=== PATIENT | female | born 1940 | race African-American/Black ===

== ENCOUNTER 2017-05-27 22:54 | Inpatient (IN) | payer BC ==
[~2017-05-27] VITALS: Ht 157.5 cm; Wt 63.5 kg
[~2017-05-27 22:54] MED LIST: ASPI-1159 PO; ATOR40TA70 PO; FAMO20TA8 PO; FURO40TA5 PO; GABA-531 PO; INSU3INS6 SUBCUT; KDUR10 PO; METF500T4 PO; METO-539 PO
[2017-05-28 00:16] LABS: BASOPHILS % 0.4 % (0.0-2.0); EOSINOPHILS % 2.7 % (0.0-5.0); MEAN CORPUSCULAR HEMOGLOBIN 28.2 pg (28.0-32.0); MEAN CORPUSCULAR VOLUME 87.2 fL (81.0-99.0); MEAN PLATELET VOLUME 7.7 fl (7.4-10.4); MONOCYTES % 8.5 % (2.0-8.0); NEUTROPHILS % 72.4 % (40.0-76.0); PLATELET 341 x1000/uL (130-400); RED BLOOD CELL COUNT 2.33 mill/uL (4.2-5.4); RED CELL DISTRIBUTION WIDTH 15.5 % (11.6-14.6)
[2017-05-28 00:20] LABS: CHLORIDE 114 mEq/L (98-107)
[2017-05-28 00:28] LABS: CARBON DIOXIDE 25 mEq/L (21-32)
[2017-05-28 00:29] LABS: HEMATOCRIT. 20.3 % (36.0-48.0); HEMOGLOBIN. 6.6 g/dL (12.0-16.0)
[2017-05-28] MEDS ORDERED: ONDANSETRON HCL 4MG/2ML VIAL IV PRN (01:15)
[2017-05-28] MEDS ORDERED: DIPHENHYDRAMINE 50MG/ML VIAL IV PRN (01:15)
[2017-05-28 01:40] LABS: MEAN CORPUSCULAR VOLUME 87.3 fL (81.0-99.0); PLATELET 330 x1000/uL (130-400); RED BLOOD CELL COUNT 2.24 mill/uL (4.2-5.4); RED CELL DISTRIBUTION WIDTH 15.6 % (11.6-14.6)
[2017-05-28 01:44] LABS: HEMOGLOBIN 6.3 g/dL (12.0-16.0)
[2017-05-28 01:45] LABS: HEMATOCRIT 19.5 % (36.0-48.0)
[2017-05-28] MEDS: DEXT 5%/0.45% NACL 1000ML 1,000 ML IV SCH (08:08)
[2017-05-28] MEDS: ACETAMINOPHEN 325MG TABLET PO PRN (08:41)
[2017-05-28] MEDS: CLONIDINE 0.1MG TABLET PO PRN ×2 (08:41→19:44)
[2017-05-28 12:16] LABS: HEMATOCRIT 25.4 % (36.0-48.0); HEMOGLOBIN 8.4 g/dL (12.0-16.0); MEAN CORPUSCULAR HEMOGLOBIN 28.7 pg (28.0-32.0); MEAN CORPUSCULAR VOLUME 87.2 fL (81.0-99.0); PLATELET 390 x1000/uL (130-400); RED BLOOD CELL COUNT 2.91 mill/uL (4.2-5.4)
[2017-05-28 13:35] LABS: TOTAL IRON BINDING CAPACITY 220 ug/dL (250-450)
[2017-05-28 14:10] LABS: FOLIC ACID (FOLATE) SERUM 17.7 ng/mL (>5.38)
[2017-05-28] MEDS: DOCUSATE SODIUM 100MG CAPSULE PO SCH (16:42)
[2017-05-28] MEDS: PANTOPRAZOLE SODIUM 40 MG/VIAL IV SCH (17:02)
[2017-05-28 18:31] LABS: HEMATOCRIT 26.4 % (36.0-48.0); HEMOGLOBIN 8.7 g/dL (12.0-16.0); MEAN CORPUSCULAR HEMOGLOBIN 29.6 pg (28.0-32.0); MEAN CORPUSCULAR VOLUME 89.6 fL (81.0-99.0); PLATELET 396 x1000/uL (130-400); RED BLOOD CELL COUNT 2.94 mill/uL (4.2-5.4); RED CELL DISTRIBUTION WIDTH 15.3 % (11.6-14.6)
[2017-05-28 20:00] VITALS: BP 176/71
[2017-05-28 22:00] VITALS: BP 176/71
[2017-05-29] VITALS (8 sets, daily range): BP systolic 117–207; BP diastolic 63–113
[2017-05-29] MEDS ORDERED: DEXTROSE 50% WATER 50ML SYRINGE IV PRN ×3 (00:30)
[2017-05-29 00:48] LABS: HEMATOCRIT 23.9 % (36.0-48.0); HEMOGLOBIN 7.8 g/dL (12.0-16.0); MEAN CORPUSCULAR HEMOGLOBIN 28.8 pg (28.0-32.0); MEAN CORPUSCULAR VOLUME 87.7 fL (81.0-99.0); PLATELET 375 x1000/uL (130-400); RED BLOOD CELL COUNT 2.72 mill/uL (4.2-5.4); RED CELL DISTRIBUTION WIDTH 15.2 % (11.6-14.6)
[2017-05-29] MEDS: CLONIDINE 0.1MG TABLET PO PRN ×2 (04:24→09:07)
[2017-05-29 06:39] LABS: HEMATOCRIT 24.6 % (36.0-48.0); HEMOGLOBIN 8.1 g/dL (12.0-16.0); MEAN CORPUSCULAR HEMOGLOBIN 28.8 pg (28.0-32.0); MEAN CORPUSCULAR VOLUME 86.9 fL (81.0-99.0); PLATELET 405 x1000/uL (130-400); RED BLOOD CELL COUNT 2.83 mill/uL (4.2-5.4); RED CELL DISTRIBUTION WIDTH 15.4 % (11.6-14.6)
[2017-05-29 06:42] LABS: PROTHROMBIN TIME 10.9 sec (9.4-11.6)
[2017-05-29] MEDS: BLOOD SUGAR DIAGNOSTIC STRIP TEST SCH ×3 (06:57→21:41)
[2017-05-29] MEDS ORDERED: BLOOD SUGAR DIAGNOSTIC STRIP TEST SCH (07:20)
[2017-05-29] MEDS: DOCUSATE SODIUM 100MG CAPSULE PO SCH ×2 (08:12→17:46)
[2017-05-29] MEDS: PANTOPRAZOLE SODIUM 40 MG/VIAL IV SCH (08:12)
[2017-05-29] MEDS ORDERED: FUROSEMIDE 40MG/4ML VIAL IVP SCH (12:15)
[2017-05-29] MEDS: DEXT 5%/0.45% NACL 1000ML 1,000 ML IV SCH ×2 (14:46→20:06)
[2017-05-29] MEDS: IPRATROPIUM/ALBUTEROL 0.5-3(2.5)MG/3ML NEB HHN PRN ×2 (15:45→20:13)
[2017-05-29] MEDS: CLONIDINE 0.2MG TABLET PO PRN (15:50)
[2017-05-29] MEDS ORDERED: SORBITOL 70% SOLN 30ML PO SCH (16:00)
[2017-05-29] MEDS: METOPROLOL TARTRATE 50MG TABLET PO SCH (16:10)
[2017-05-29] MEDS: ACETAMINOPHEN 325MG TABLET PO PRN (19:57)
[2017-05-29] MEDS ORDERED: SORBITOL 70% SOLN 30ML PO NR (20:00)
[2017-05-29] MEDS: HYDRALAZINE 20MG/ML VIAL IV PRN (20:07)
[2017-05-29] MEDS: INSULIN LISPRO 100 UNITS/ML SUBCUT SCH (22:03)
[2017-05-30] VITALS (12 sets, daily range): BP systolic 134–187; BP diastolic 71–95
[2017-05-30] MEDS: CLONIDINE 0.2MG TABLET PO PRN ×2 (00:06→15:09)
[2017-05-30] MEDS: HYDRALAZINE 20MG/ML VIAL IV PRN ×3 (05:13→18:20)
[2017-05-30] MEDS ORDERED: NA PHOS,M-B/NA PHOS,DI-BA ENEMA 118ML PR ONE (06:00)
[2017-05-30] MEDS: BLOOD SUGAR DIAGNOSTIC STRIP TEST SCH ×4 (06:17→21:25)
[2017-05-30] MEDS: INSULIN LISPRO 100 UNITS/ML SUBCUT SCH ×4 (06:28→21:25)
[2017-05-30 06:59] LABS: INR 1.1; PARTIAL THROMBOPLASTIN TIME 26.8 sec (23.4-31.0); PROTHROMBIN TIME 11.7 sec (9.4-11.6)
[2017-05-30 07:03] LABS: BASOPHILS % 0.4 % (0.0-2.0); EOSINOPHILS % 0.7 % (0.0-5.0); HEMATOCRIT. 24.2 % (36.0-48.0); LYMPHOCYTES % 22.9 % (20.0-50.0); MEAN CORPUSCULAR VOLUME 87.5 fL (81.0-99.0); MONOCYTES % 6.6 % (2.0-8.0); NEUTROPHILS % 69.4 % (40.0-76.0); PLATELET 387 x1000/uL (130-400); RED BLOOD CELL COUNT 2.77 mill/uL (4.2-5.4); RED CELL DISTRIBUTION WIDTH 15.2 % (11.6-14.6)
[2017-05-30 08:15] LABS: CARBON DIOXIDE 22 mEq/L (21-32); CHLORIDE 121 mEq/L (98-107)
[2017-05-30] MEDS ORDERED: SODIUM CHLORIDE 0.9% 10ML VIAL ONE (08:45)
[2017-05-30] MEDS ORDERED: SIMETHICONE 40 MG/0.6 ML 30ML ONE ×2 (08:45→10:29)
[2017-05-30] MEDS: PANTOPRAZOLE SODIUM 40 MG/VIAL IV SCH (08:47)
[2017-05-30] MEDS: METOPROLOL TARTRATE 50MG TABLET PO SCH ×2 (09:00→21:25)
[2017-05-30] MEDS: DOCUSATE SODIUM 100MG CAPSULE PO SCH ×2 (09:00→16:44)
[2017-05-30] MEDS ORDERED: MIDAZOLAM HCL 5 MG/5 ML VIAL ONE (10:30)
[2017-05-30] MEDS ORDERED: FENTANYL CITRATE/PF 50MCG/ML 2ML VIAL ONE (10:30)
[2017-05-30] MEDS ORDERED: MIDAZOLAM HCL 5 MG/5 ML VIAL IV PRN (10:32)
[2017-05-30] MEDS ORDERED: FENTANYL CITRATE/PF 50MCG/ML 2ML VIAL IV PRN (10:32)
[2017-05-30] MEDS ORDERED: POTASSIUM CHLORIDE INJ 40 MEQ in DEXT 5% WATER 500 ML IV NR (11:00)
[2017-05-30] MEDS: SODIUM CHLORIDE 0.45% 1,000 ML IV SCH (15:24)
[2017-05-31] VITALS (14 sets, daily range): BP systolic 131–196; BP diastolic 62–99
[2017-05-31] MEDS: HYDRALAZINE 20MG/ML VIAL IV PRN ×3 (04:08→18:24)
[2017-05-31] MEDS: BLOOD SUGAR DIAGNOSTIC STRIP TEST SCH ×4 (06:10→20:28)
[2017-05-31] MEDS: CLONIDINE 0.2MG TABLET PO PRN ×2 (06:15→13:01)
[2017-05-31 06:28] LABS: BASOPHILS % 0.1 % (0.0-2.0); EOSINOPHILS % 2.7 % (0.0-5.0); HEMATOCRIT. 28.2 % (36.0-48.0); HEMOGLOBIN. 9.2 g/dL (12.0-16.0); LYMPHOCYTES % 14.2 % (20.0-50.0); MEAN CORPUSCULAR HEMOGLOBIN 28.3 pg (28.0-32.0); MEAN CORPUSCULAR VOLUME 86.5 fL (81.0-99.0); MEAN PLATELET VOLUME 7.9 fl (7.4-10.4); MONOCYTES % 3.7 % (2.0-8.0); NEUTROPHILS % 79.3 % (40.0-76.0); PLATELET 455 x1000/uL (130-400); RED BLOOD CELL COUNT 3.25 mill/uL (4.2-5.4); RED CELL DISTRIBUTION WIDTH 15.3 % (11.6-14.6)
[2017-05-31] MEDS: INSULIN LISPRO 100 UNITS/ML SUBCUT SCH ×4 (08:24→20:38)
[2017-05-31] MEDS: DOCUSATE SODIUM 100MG CAPSULE PO SCH ×2 (08:24→16:32)
[2017-05-31] MEDS: METOPROLOL TARTRATE 50MG TABLET PO SCH ×2 (08:29→20:26)
[2017-05-31] MEDS: PANTOPRAZOLE SODIUM 40 MG/VIAL IV SCH (09:23)
[2017-05-31] MEDS: SODIUM CHLORIDE 0.45% 1,000 ML IV SCH (09:29)
[2017-05-31] MEDS ORDERED: POTASSIUM CHLORIDE 20MEQ TABLET SR PO NR (11:15)
[2017-05-31] MEDS: CLONIDINE 0.1MG TABLET PO SCH ×2 (14:36→22:31)
[2017-05-31] MEDS: GUAIFENESIN-DM 200MG-20MG/10ML UDC PO PRN (18:36)
[2017-06-01] VITALS (22 sets, daily range): BP systolic 143–217; BP diastolic 70–138
[2017-06-01] MEDS: BLOOD SUGAR DIAGNOSTIC STRIP TEST SCH ×4 (05:31→21:00)
[2017-06-01] MEDS: CLONIDINE 0.1MG TABLET PO SCH (05:31)
[2017-06-01] MEDS: SODIUM CHLORIDE 0.45% 1,000 ML IV SCH (05:31)
[2017-06-01] MEDS: HYDRALAZINE 20MG/ML VIAL IV PRN ×2 (07:06→18:19)
[2017-06-01 07:09] LABS: BASOPHILS % 0.2 % (0.0-2.0); EOSINOPHILS % 2.2 % (0.0-5.0); HEMATOCRIT. 27.6 % (36.0-48.0); HEMOGLOBIN. 9.4 g/dL (12.0-16.0); LYMPHOCYTES % 14.8 % (20.0-50.0); MEAN CORPUSCULAR HEMOGLOBIN 29.4 pg (28.0-32.0); MEAN CORPUSCULAR VOLUME 86.5 fL (81.0-99.0); MONOCYTES % 4.4 % (2.0-8.0); NEUTROPHILS % 78.4 % (40.0-76.0); PLATELET 391 x1000/uL (130-400); RED BLOOD CELL COUNT 3.19 mill/uL (4.2-5.4); RED CELL DISTRIBUTION WIDTH 15.7 % (11.6-14.6)
[2017-06-01] MEDS: CLONIDINE 0.2MG TABLET PO PRN (09:25)
[2017-06-01] MEDS: DOCUSATE SODIUM 100MG CAPSULE PO SCH ×2 (09:25→18:19)
[2017-06-01] MEDS: METOPROLOL TARTRATE 50MG TABLET PO SCH ×2 (09:26→21:26)
[2017-06-01] MEDS: INSULIN LISPRO 100 UNITS/ML SUBCUT SCH ×4 (09:27→21:00)
[2017-06-01] MEDS: PANTOPRAZOLE SODIUM 40 MG/VIAL IV SCH (09:27)
[2017-06-01] MEDS ORDERED: IPRATROPIUM/ALBUTEROL 0.5-3(2.5)MG/3ML NEB HHN NR (11:45)
[2017-06-01] MEDS: GUAIFENESIN-DM 200MG-20MG/10ML UDC PO PRN (14:23)
[2017-06-01] MEDS: CLONIDINE 0.2MG TABLET PO SCH ×2 (14:25→21:28)
[2017-06-01] MEDS ORDERED: HYDRALAZINE 20MG/ML VIAL IV NR (18:45)
[2017-06-01] MEDS ORDERED: FUROSEMIDE 40MG/4ML VIAL IVP NR (19:15)
[2017-06-02] MEDS ORDERED: FAMOTIDINE 20MG/2ML VIAL IV SCH (09:00)
== END 2017-06-01 23:57 | DRG 393 ==
LOC: ER 23:07 → 6EST 05-28 02:05 → ENRESERV 05-28 18:42 → 3WST 05-29 16:57
PROVIDERS: ADMIT Internal Medicine; ATTEND Internal Medicine
PROC: 30233N1 Transfusion of Nonautologous Red Blood Cells into Peripheral Vein, Percutaneous Approach (ICD-10-PCS; 2017-05-28)
PROC: 0DBP8ZX Excision of Rectum, Via Natural or Artificial Opening Endoscopic, Diagnostic (ICD-10-PCS; 2017-05-30)
PROC: 0DB68ZX Excision of Stomach, Via Natural or Artificial Opening Endoscopic, Diagnostic (ICD-10-PCS; principal; 2017-05-30 11:00)
DX: K62.6 Ulcer of anus and rectum (principal); E43 Unspecified severe protein-calorie malnutrition; E87.0 Hyperosmolality and hypernatremia; D64.9 Anemia, unspecified; E11.22 Type 2 diabetes mellitus with diabetic chronic kidney disease; E11.40 Type 2 diabetes mellitus with diabetic neuropathy, unspecified; I12.9 Hypertensive chronic kidney disease with stage 1 through stage 4 chronic kidney disease, or unspecified chronic kidney disease; K64.8 Other hemorrhoids; K44.9 Diaphragmatic hernia without obstruction or gangrene; E61.1 Iron deficiency; N18.9 Chronic kidney disease, unspecified; F32.9 Major depressive disorder, single episode, unspecified; E03.9 Hypothyroidism, unspecified; E78.5 Hyperlipidemia, unspecified; I25.10 Atherosclerotic heart disease of native coronary artery without angina pectoris; K29.60 Other gastritis without bleeding; K59.00 Constipation, unspecified; Z93.1 Gastrostomy status; Q71.32 Congenital absence of left hand and finger; Z95.5 Presence of coronary angioplasty implant and graft; I25.2 Old myocardial infarction; Z88.5 Allergy status to narcotic agent; Z79.84 Long term (current) use of oral hypoglycemic drugs; Z79.899 Other long term (current) drug therapy; Z86.73 Personal history of transient ischemic attack (TIA), and cerebral infarction without residual deficits; Z87.891 Personal history of nicotine dependence; Z82.49 Family history of ischemic heart disease and other diseases of the circulatory system; Z83.3 Family history of diabetes mellitus; Z68.25 Body mass index [BMI] 25.0-25.9, adult
CPT/HCPCS: 36415; 70450; 71045; 71250; 74176; 80048; 80053; 82270; 82607; 82728; 82746; 82962; 83540; 83550; 85025; 85027; 85610; 85730; 86850; 86900; 86920; 88305; 88312; 88313; 93005; 93306; 93923; 94640; 94664; 96374; 96375; 99152; 99153; 99285; A4216; C1893; C9113; J0360; J1200; J1815; J1940; J2250; J2405; J3010; J3480; J7060; J7620; P9016

== ENCOUNTER 2017-06-15 15:47 | Observation (INO) | payer BC ==
[~2017-06-15] VITALS: Ht 165.1 cm; Wt 79.8 kg
[~2017-06-15 15:47] MED LIST changes: -ASPI-1159 PO; -FURO40TA5 PO; -INSU3INS6 SUBCUT; -KDUR10 PO; -METF500T4 PO
[2017-06-15] MEDS ORDERED: SODIUM CHLORIDE 0.9% 1,000 ML IV ONE (16:52)
[2017-06-15] MEDS ORDERED: DIPHENHYDRAMINE 50MG/ML VIAL IV ONE (17:00)
[2017-06-15 17:28] LABS: CHLORIDE 118 mEq/L (98-107)
[2017-06-15 17:29] LABS: BASOPHILS % 0.2 % (0.0-2.0); EOSINOPHILS % 0.8 % (0.0-5.0); LYMPHOCYTES % 14.8 % (20.0-50.0); MEAN CORPUSCULAR VOLUME 87.7 fL (81.0-99.0); MEAN PLATELET VOLUME 8.7 fl (7.4-10.4); MONOCYTES % 5.3 % (2.0-8.0); NEUTROPHILS % 78.9 % (40.0-76.0); PLATELET 288 x1000/uL (130-400); RED BLOOD CELL COUNT 2.37 mill/uL (4.2-5.4); RED CELL DISTRIBUTION WIDTH 15.8 % (11.6-14.6)
[2017-06-15 17:34] LABS: HEMATOCRIT. 20.8 % (36.0-48.0); HEMOGLOBIN. 6.6 g/dL (12.0-16.0); PHOSPHORUS 3.3 mg/dL (2.5-4.9); TROPONIN I 0.03 ng/mL (0.00-0.04)
[2017-06-15 17:35] LABS: CREATINE KINASE MB FRACTION 3.4 ng/mL (0.5-3.6)
[2017-06-15 17:40] LABS: INR 1.1; PARTIAL THROMBOPLASTIN TIME 25.5 sec (23.4-31.0); PROTHROMBIN TIME 11.6 sec (9.4-11.6)
[2017-06-15] MEDS ORDERED: SODIUM BICARBONATE 8.4% 1 MEQ/ML 50ML SYR IV ONE (18:45)
[2017-06-15] MEDS ORDERED: SODIUM POLYSTYRENE SULFONATE 15 G/60 ML BOT PO ONE (18:45)
[2017-06-15] MEDS ORDERED: ALBUTEROL (0.083%) 2.5MG/3ML NEB HHN ONE (18:45)
[2017-06-15] MEDS ORDERED: DEXTROSE 50% WATER 50ML SYRINGE IV ONE (18:45)
[2017-06-15] MEDS ORDERED: INSULIN REGULAR (HUMULIN R) 300UNITS/3ML IV ONE (18:45)
[2017-06-15] MEDS ORDERED: LEVOFLOXACIN 750MG PREMIX 150 ML IV ONE (19:15)
[2017-06-15] MEDS ORDERED: OSELTAMIVIR 75MG CAPSULE PO ONE (19:15)
[2017-06-15] MEDS ORDERED: SODIUM CHLORIDE 0.9% 1000ML BAG (SEPSIS BOLUS) IV ONE (19:15)
[2017-06-16] VITALS (8 sets, daily range): BP systolic 135–191; BP diastolic 61–87
[2017-06-16] MEDS ORDERED: DEXTROSE 50% WATER 50ML SYRINGE IV PRN (06:00)
[2017-06-16] MEDS: SODIUM CHLORIDE 0.45% 1,000 ML IV SCH ×2 (06:18→21:44)
[2017-06-16] MEDS: BLOOD SUGAR DIAGNOSTIC STRIP TEST SCH ×4 (07:40→21:00)
[2017-06-16] MEDS: INSULIN LISPRO 100 UNITS/ML SUBCUT SCH ×4 (08:10→21:00)
[2017-06-16] MEDS: METOPROLOL TARTRATE 50MG TABLET PO SCH (09:00)
[2017-06-16] MEDS: FAMOTIDINE 20MG TABLET PO SCH (09:00)
[2017-06-16] MEDS ORDERED: LEVETIRACETAM 500MG PREMIX 100 ML IV NR (09:00)
[2017-06-16 09:23] LABS: BASOPHILS % 0.2 % (0.0-2.0); EOSINOPHILS % 0.1 % (0.0-5.0); HEMATOCRIT. 28.8 % (36.0-48.0); LYMPHOCYTES % 7.8 % (20.0-50.0); MEAN CORPUSCULAR HEMOGLOBIN 28.4 pg (28.0-32.0); MEAN CORPUSCULAR VOLUME 90.7 fL (81.0-99.0); MONOCYTES % 3.9 % (2.0-8.0); PLATELET 278 x1000/uL (130-400); RED BLOOD CELL COUNT 3.17 mill/uL (4.2-5.4); RED CELL DISTRIBUTION WIDTH 15.5 % (11.6-14.6)
[2017-06-16] MEDS ORDERED: LEVOFLOXACIN 750MG PREMIX 150 ML IV SCH (13:00)
[2017-06-16] MEDS: HYDRALAZINE 20MG/ML VIAL IV PRN ×2 (14:04→21:44)
[2017-06-16 14:59] LABS: BASOPHILS % 0.2 % (0.0-2.0); EOSINOPHILS % 0.3 % (0.0-5.0); HEMATOCRIT. 26.3 % (36.0-48.0); HEMOGLOBIN. 8.3 g/dL (12.0-16.0); LYMPHOCYTES % 9.2 % (20.0-50.0); MEAN CORPUSCULAR HEMOGLOBIN 28.5 pg (28.0-32.0); MEAN PLATELET VOLUME 7.9 fl (7.4-10.4); MONOCYTES % 5.4 % (2.0-8.0); NEUTROPHILS % 84.9 % (40.0-76.0); PLATELET 245 x1000/uL (130-400); RED BLOOD CELL COUNT 2.92 mill/uL (4.2-5.4); RED CELL DISTRIBUTION WIDTH 15.3 % (11.6-14.6)
[2017-06-16] MEDS: ATORVASTATIN CALCIUM 40MG TABLET PO SCH (21:00)
[2017-06-16] MEDS ORDERED: GABAPENTIN 300MG CAPSULE PO PRN (21:00)
[2017-06-16] MEDS: LEVETIRACETAM 500MG PREMIX 100 ML IV SCH (21:43)
[2017-06-16] MEDS ORDERED: DIPHENHYDRAMINE 50MG/ML VIAL IV SCH (21:45)
[2017-06-17] VITALS (7 sets, daily range): BP systolic 161–186; BP diastolic 74–89
[2017-06-17] MEDS: BLOOD SUGAR DIAGNOSTIC STRIP TEST SCH ×4 (05:57→21:17)
[2017-06-17] MEDS: HYDRALAZINE 20MG/ML VIAL IV PRN ×2 (06:20→20:15)
[2017-06-17 06:39] LABS: BASOPHILS % 0.2 % (0.0-2.0); EOSINOPHILS % 0.8 % (0.0-5.0); HEMATOCRIT. 25.8 % (36.0-48.0); HEMOGLOBIN. 8.3 g/dL (12.0-16.0); LYMPHOCYTES % 8.5 % (20.0-50.0); MEAN CORPUSCULAR HEMOGLOBIN 28.7 pg (28.0-32.0); MEAN CORPUSCULAR VOLUME 89.5 fL (81.0-99.0); MEAN PLATELET VOLUME 7.9 fl (7.4-10.4); MONOCYTES % 5.4 % (2.0-8.0); NEUTROPHILS % 85.1 % (40.0-76.0); PLATELET 258 x1000/uL (130-400); RED BLOOD CELL COUNT 2.89 mill/uL (4.2-5.4); RED CELL DISTRIBUTION WIDTH 15.9 % (11.6-14.6)
[2017-06-17] MEDS: INSULIN LISPRO 100 UNITS/ML SUBCUT SCH ×4 (08:08→21:24)
[2017-06-17] MEDS: FAMOTIDINE 20MG TABLET PO SCH (09:08)
[2017-06-17] MEDS: METOPROLOL TARTRATE 50MG TABLET PO SCH (09:08)
[2017-06-17] MEDS: LEVETIRACETAM 500MG PREMIX 100 ML IV SCH ×2 (09:12→20:16)
[2017-06-17] MEDS ORDERED: HYDRALAZINE 20MG/ML VIAL IV SCH (11:00)
[2017-06-17] MEDS: SODIUM CHLORIDE 0.45% 1,000 ML IV SCH ×2 (11:47→20:17)
[2017-06-17 12:43] LABS: KETONES URINE NEGATIVE (NEGATIVE); LEUKOCYTE ESTERASE URINE 3+ (NEGATIVE); NITRITE URINE NEGATIVE (NEGATIVE); OCCULT BLOOD URINE 1+ (NEGATIVE); PH URINE 5.5 (4.5-8.0); PROTEIN URINE 3+ (NEGATIVE); SPECIFIC GRAVITY URINE 1.015 (1.005-1.030); UROBILINOGEN URINE 0.2 E.U./dL (0.2-1.0)
[2017-06-17] MEDS ORDERED: CLONIDINE HCL 0.2MG/24HR PATCH TD SCH (13:00)
[2017-06-17 13:29] LABS: CLARITY URINE TURBID (CLEAR); COLOR URINE YELLOW (YELLOW)
[2017-06-17] MEDS ORDERED: EPOETIN ALFA 10000UNITS/ML VIAL SUBCUT NR (14:00)
[2017-06-17] MEDS ORDERED: LACTULOSE 20G/30ML UDC PO NR (17:30)
[2017-06-17] MEDS ORDERED: LEVOFLOXACIN 500MG PREMIX 100 ML IV SCH (20:00)
[2017-06-17] MEDS: HYDRALAZINE HCL 25MG TABLET PO SCH (20:16)
[2017-06-17] MEDS: ATORVASTATIN CALCIUM 40MG TABLET PO SCH (20:16)
[2017-06-18 00:10] VITALS: BP 168/76
[2017-06-18] MEDS: HYDRALAZINE 20MG/ML VIAL IV PRN (03:08)
[2017-06-18 04:00] VITALS: BP 122/80
[2017-06-18] MEDS: BLOOD SUGAR DIAGNOSTIC STRIP TEST SCH ×3 (05:11→17:35)
[2017-06-18 07:58] VITALS: BP 182/98
[2017-06-18] MEDS: FAMOTIDINE 20MG TABLET PO SCH (08:10)
[2017-06-18] MEDS: METOPROLOL TARTRATE 50MG TABLET PO SCH (08:10)
[2017-06-18] MEDS: HYDRALAZINE HCL 25MG TABLET PO SCH (08:11)
[2017-06-18] MEDS: INSULIN LISPRO 100 UNITS/ML SUBCUT SCH ×3 (08:12→18:27)
[2017-06-18] MEDS: LEVETIRACETAM 500MG PREMIX 100 ML IV SCH (08:13)
[2017-06-18 09:51] LABS: BASOPHILS % 0.3 % (0.0-2.0); EOSINOPHILS % 0.4 % (0.0-5.0); HEMATOCRIT. 26.9 % (36.0-48.0); HEMOGLOBIN. 8.5 g/dL (12.0-16.0); LYMPHOCYTES % 8.6 % (20.0-50.0); MEAN CORPUSCULAR VOLUME 89.1 fL (81.0-99.0); MEAN PLATELET VOLUME 7.8 fl (7.4-10.4); MONOCYTES % 4.9 % (2.0-8.0); NEUTROPHILS % 85.8 % (40.0-76.0); PLATELET 292 x1000/uL (130-400); RED BLOOD CELL COUNT 3.02 mill/uL (4.2-5.4); RED CELL DISTRIBUTION WIDTH 15.6 % (11.6-14.6)
[2017-06-18 12:00] VITALS: BP 174/69
[2017-06-18] MEDS ORDERED: BISACODYL 10MG SUPP PR PRN (13:15)
[2017-06-18] MEDS ORDERED: BISACODYL 10MG SUPP PR NR (13:15)
[2017-06-18] MEDS ORDERED: DOCUSATE SODIUM 100MG CAPSULE PO NR (13:15)
[2017-06-18] MEDS ORDERED: CEPHALEXIN 250MG CAPSULE PO SCH (16:30)
[2017-06-18] MEDS ORDERED: DIPHENHYDRAMINE 25MG CAPSULE PO PRN (17:15)
[2017-06-18 18:50] VITALS: BP 150/77
[2017-06-18] MEDS ORDERED: NITROFURANTOIN 100MG M/M CAPSULE PO SCH (21:00)
[2017-06-19] MEDS ORDERED: DOCUSATE SODIUM 100MG CAPSULE PO SCH (09:00)
[2017-06-21 13:07] LABS: A/G RATIO 0.6 (0.7-1.7); ALBUMIN 2.1 g/dL (2.9-4.4); ALPHA-1-GLOBULIN 0.4 g/dL (0.0-0.4); ALPHA-2-GLOBULIN 0.9 g/dL (0.4-1.0); GAMMA GLOBULINS 1.1 g/dL (0.4-1.8); GLOBULIN TOTAL 3.3 g/dL (2.2-3.9); M-SPIKE Not Observed g/dL (Not Observed); TOTAL PROTEIN SERUM 5.4 g/dL (6.0-8.5)
== END 2017-06-18 19:17 ==
LOC: ER 16:12 → EDBEDREQ 19:41 → 7WST 20:10 → INTOOBSV 20:10 → ENRESERV 20:19
PROVIDERS: ADMIT Internal Medicine; ATTEND Internal Medicine
DX: D64.9 Anemia, unspecified (principal); R47.81 Slurred speech; R13.10 Dysphagia, unspecified; E11.22 Type 2 diabetes mellitus with diabetic chronic kidney disease; I13.0 Hypertensive heart and chronic kidney disease with heart failure and stage 1 through stage 4 chronic kidney disease, or unspecified chronic kidney disease; N18.3 Chronic kidney disease, stage 3 (moderate); I50.32 Chronic diastolic (congestive) heart failure; A41.9 Sepsis, unspecified organism; J18.9 Pneumonia, unspecified organism; I25.10 Atherosclerotic heart disease of native coronary artery without angina pectoris; I73.9 Peripheral vascular disease, unspecified; K21.9 Gastro-esophageal reflux disease without esophagitis; N17.0 Acute kidney failure with tubular necrosis; R29.810 Facial weakness; E78.00 Pure hypercholesterolemia, unspecified; E03.9 Hypothyroidism, unspecified; K59.09 Other constipation; I25.2 Old myocardial infarction; Z82.49 Family history of ischemic heart disease and other diseases of the circulatory system; Z86.73 Personal history of transient ischemic attack (TIA), and cerebral infarction without residual deficits; Z95.5 Presence of coronary angioplasty implant and graft; Z83.3 Family history of diabetes mellitus
CPT/HCPCS: 36415; 36430; 70450; 70551; 71045; 76770; 80048; 80053; 81001; 82553; 82728; 82962; 83010; 83540; 83550; 83605; 83615; 83735; 84100; 84155; 84165; 84443; 84484; 85025; 85610; 85730; 86850; 86870; 86900; 86901; 86920; 87040; 87077; 87086; 87186; 87804; 92526; 92610; 93005; 94640; 96361; 96365; 96366; 96367; 96368; 96372; 96375; 96376; 99291; A6261; G0378; G8996; G8997; G8998; J0360; J0885; J1200; J1815; J1953; J1956; J3490; J7030; J7040; J7611; P9016; A4315